=== PATIENT | female | born 1995 | race Caucasian/White ===

== ENCOUNTER 2016-11-19 00:06 | Emergency (ER) | payer MEDICAID ==
[~2016-11-19] VITALS: Ht 160 cm; Wt 53.6 kg
[2016-11-19 00:10] VITALS: Ht 160 cm; Wt 53.6 kg
--- NOTE | 2016-11-19 02:49 | ERD ---
ER Documentation Chief Complaint Date/Time DATE: 11/19/16 TIME: 02:47 Chief Complaint C/O AP X 2 DAYS +N/V 6 WKS PREG. ALSO C/O SKIN DRYNESS HPI 21-year-old female presents here in emergency department for complaints of lower abdominal pain, nausea vomiting started 2 days ago. Patient described the pain is sharp , intermittent pain, 4/10 scale, accompanied with vomiting. Patient denies hematuria or dysuria. Patient denies any vaginal bleeding. Patient denies any other vaginal discharge. Patient denies any flank pain. Patient denies any fever or chills. Patient is approximately 6 weeks , 2 para 1 0. LMP 10/01/2016. Patient also has itching on the bilateral hands, and redness of the skin. Patient denies any rash in other part of the body. ROS All systems reviewed and are negative except as per history of present illness. Medications Home Meds Reported Medications [none] Unknown Strength No Conflict Check 11/19/16 Allergies Allergies: Uncoded Allergies: AMOXCILLIN (Allergy, Intermediate, 11/19/16) PMhx/Soc Medical and Surgical Hx: pt denies Medical Hx, pt denies Surgical Hx History of Surgery: No Anesthesia Reaction: No Hx Neurological Disorder: No Hx Respiratory Disorders: No Hx Cardiac Disorders: No Hx Psychiatric Problems: No Hx Miscellaneous Medical Probl: No Hx Alcohol Use: No Hx Substance Use: No Hx Tobacco Use: No Smoking Status: Never smoker FmHx Family History: No coronary disease, No diabetes, No other Physical Exam Vitals Vital Signs Date Time Temp Pulse Resp B/P Pulse Ox O2 Delivery O2 Flow Rate FiO2 11/19/16 00:10 97.0 76 18 114/65 100 Physical Exam GENERAL: The patient is well developed and appropriate for usual state of health, in no apparent distress. CHEST: Clear to auscultation bilaterally. There are no rales, wheezes or rhonchi. HEART: Regular rate and rhythm. No murmurs, clicks, rubs or gallops. No S3 or S4. ABDOMEN: Soft, nontender and nondistended. Good bowel sounds. No rebound or guarding. No gross peritonitis. No gross organomegaly or masses. No Emanuel sign or McBurney point tenderness. BACK: No midline or flank tenderness. EXTREMITIES: Equal pulses bilaterally. There is no peripheral clubbing, cyanosis or edema. No focal swelling or erythema. Full range of motion. Grossly neurovascularly intact. NEURO: Alert and oriented. Cranial nerves 2-12 intact. Motor strength in all 4 extremities with 5/5 strength. Sensation grossly intact. Normal speech and gait. SKIN: Noted dryness of the skin on bilateral hands, and more on the thumb and the dorsal aspect of the hand. There is no apparent ecchymosis or petechia. The skin is warm and dry. HEMATOLOGIC AND LYMPHATIC: There is no evidence of excessive bruising or lymphedema. No gross cervical, axillary, or inguinal lymphadenopathy. Result Diagram: 11/19/1623211/19/16232 Results 24 hrs Laboratory Tests Test 11/19/16 02:26 11/19/16 02:33 Urine Bacteria MANY Urine Bilirubin NEGATIVE Urine Clarity CLEAR Urine Color YELLOW Urine Glucose NEGATIVE% Urine Hemoglobin NEGATIVE Urine Ketones NEGATIVE Urine Leukocyte Esterase NEGATIVE Urine Microscopic RBC 0-2/HPF Urine Microscopic WBC 0-2/HPF Urine Nitrite POSITIVE Urine Specific [place] >=1.030 Urine Squamous Epithelial Cells FEW Urine Total Protein NEGATIVE Urine Urobilinogen 0.2 E.U./dL Urine pH 5.5 Alanine Aminotransferase (ALT/SGPT) 36IU/L Albumin 4.7g/dl Albumin/Globulin Ratio 1.27 Alkaline Phosphatase 57IU/L Anion Gap 19 Aspartate Amino Transf (AST/SGOT) 26IU/L Basophils # 0.010^3/ul Basophils % 0.3% Beta HCG, Quantitative 63912.0mIU/ml Blood Urea Nitrogen 7mg/dl Calcium Level 9.7mg/dl Carbon Dioxide Level 22mmol/L Chloride Level 102mmol/L Creatinine 0.47mg/dl Direct Bilirubin 0.00mg/dl Eosinophils # 0.010^3/ul Eosinophils % 0.3% Globulin 3.70g/dl Glucose Level 94mg/dl Hematocrit 37.2% Hemoglobin 13.3g/dl Indirect Bilirubin 0.2mg/dl Lymphocytes # 2.010^3/ul Lymphocytes % 19.0% Mean Corpuscular Hemoglobin 31.1pg Mean Corpuscular Hemoglobin Concent 35.8g/dl Mean Corpuscular Volume 86.9fl Mean Platelet Volume 9.8fl Monocytes # 0.410^3/ul Monocytes % 3.5% Neutrophils # 8.010^3/ul Neutrophils % 76.4% Nucleated Red Blood Cells # 0.010^3/ul Nucleated Red Blood Cells % 0.0/100WBC Platelet Count 80027^3/UL Potassium Level 4.0mmol/L Red Blood Count 4.2810^6/ul Red Cell Distribution Width 11.3% Sodium Level 139mmol/L Total Bilirubin 0.2mg/dl Total Protein 8.4g/dl White Blood Count 10.510^3/ul PROCEDURE: US OB. CLINICAL INDICATION: Pelvic pain. TECHNIQUE: Multiple sonographic images of the pelvis were obtained. Transabdominal and transvaginal views of the pelvis are available for review. The images were reviewed on a PACS workstation. COMPARISON: No prior studies are available for comparison. FINDINGS: A single live intrauterine is identified. heart rate is 117 beats per minute. The crown-rump length is 5.4 mm which corresponds to 6 weeks 2 days gestational age by crown-rump length. Estimated date of delivery is . No subchorionic hemorrhage is identified. There is 1.5 x 1.3 cm cyst in the right ovary. Right ovary is otherwise normal appearance of vascular flow. Left ovary was not visualized. There is no adnexal mass or free fluid. IMPRESSION: 1. Single live intrauterine gestation of approximately 6 weeks 2 days by crown rump length. 2. No subchorionic hemorrhage. 3. Small right ovarian cyst. Right ovary otherwise normal in appearance. 4. Left ovary not identified. RPTAT: HMVK .Loyd Boyce MD, MD Date Time Electronically viewed and signed by .Loyd Boyce MD, on 11/19/2016 02:58 .K/ Procedures/[facility] Medical Decision Making: Patient's symptoms of pelvic pain. It is consistent. The right ovarian cyst, also can be from the urinary tract infection, positive nitrites in the urine. Patient's intrauterine stable at this time, 6 weeks, with hCG quantitative is appropriate for . There is low suspicion for abdominal emergencies at this time. Patients abdominal exam is normal at this time. Other radiology exams not indicated at this time. There is low suspicion for appendicitis, cholecystitis, abdominal aortic aneurysms or peritonitis at this time. There is low suspicion for sepsis. Patient appears well and is hemodynamically stable. Patient's rash most likely is consistent with eczema, or some form of dermatitis. Nonspecific at this time. Patient is given prescription for Benadryl to help with itching. Disposition: Home. Condition: Stable Prescription Benadryl, Zofran, Tylenol, Keflex Instructions: Patient is advised to take medications as prescribed. Patient is advised to rest, increase fluid intake and do good perineal diet, see gynecology specialist in 1-2 days for reevaluation of symptoms. Patient is advised that if symptoms are worse, severe abdominal pain, uncontrolled vomiting , high fever, severe flank pain, worst signs and symptoms, to return to the emergency department immediately. Otherwise, patient can follow up with primary care doctor in 1-2 days Departure Diagnosis: Primary Impression: Abdominal pain Abdominal location: lower abdomen, unspecified Qualified Code: R10.30 - Lower abdominal pain Additional Impressions: UTI (urinary tract infection) Urinary tract infection type: acute cystitis Hematuria presence: without hematuria Qualified Code: N30.00 - Acute cystitis without hematuria Right ovarian cyst Intrauterine Condition: Stable Patient Instructions: Abdominal Pain, Early , Ovarian Cyst, Understanding Urinary Tract Infections (UTIs) Additional Instructions: Patient is advised to take medications as prescribed. Patient is advised to rest , increase fluid intake and do good perineal diet, see gynecology specialist in 1-2 days for reevaluation of symptoms. Patient is advised that if symptoms are worse, severe abdominal pain, uncontrolled vomiting, high fever, severe flank pain, worst signs and symptoms, to return to the emergency department immediately. Otherwise, patient can follow up with primary care doctor in 1-2 days JARED WEBBER NP Nov 19, 2016 02:49
--- NOTE | 2016-11-19 02:59 | RADRPT ---
PROCEDURE: US OB. CLINICAL INDICATION: Pelvic pain. TECHNIQUE: Multiple sonographic images of the pelvis were obtained. Transabdominal and transvagin al views of the pelvis are available for review. The images were reviewed on a PACS workstation. COMPARISON: No prior studies are available for comparison. FINDINGS: A single live intrauterine is identified. heart rate is 117 beats per minute. The cr own-rump length is 5.4 mm which corresponds to 6 weeks 2 days gestational age by crown-rump length. Estimated date of delivery is 07/12/2017. No subchorionic hemorrhage is identified. There is 1.5 x 1.3 cm cyst in the right ovary. Right ovary is otherwise normal appearance of vascular flow. Left o vary was not visualized. There is no adnexal mass or free fluid. IMPRESSION: 1. Single live intrauterine gestation of approximately 6 weeks 2 days by crown rump length. 2. No subchorionic hemorrhage. 3. Small right ovarian cyst. Right ovary otherwise normal in appearance. 4. Left ovary not identified. RPTAT: HMVK .Loyd Boyce MD, MD Date Time Electronically viewed and signed by .Loyd Boyce MD, MD on 11/19/2016 02:58 .K/
[2016-11-19 03:05] LABS: ADD SCAN DIFF NO
[2016-11-19 03:17] LABS: ALBUMIN 4.7 g/dl (3.3-4.9)
[2016-11-19 03:20] LABS: ALBUMIN/GLOBULIN RATIO 1.27; BILIRUBIN,INDIRECT 0.2 mg/dl (0-1.1); BILIRUBIN,TOTAL 0.2 mg/dl (0.2-1.3); CREATININE 0.47 mg/dl (0.44-1.00); TOTAL PROTEIN 8.4 g/dl (6.1-8.1)
[2016-11-19 03:21] LABS: CALCIUM 9.7 mg/dl (8.4-10.2)
[2016-11-19 03:21] LABS: ADD UMIC YES; URINE BILIRUBIN (Dip) NEGATIVE (NEGATIVE); URINE BLOOD (Dip) NEGATIVE (NEGATIVE); URINE COLOR YELLOW (YELLOW); URINE GLUCOSE (Dip) NEGATIVE (NEGATIVE); URINE KETONES (Dip) NEGATIVE (NEGATIVE); URINE LEUKOCYTE ESTERASE (Dip) NEGATIVE (NEGATIVE); URINE NITRITE (Dip) POSITIVE (NEGATIVE); URINE TOTAL PROTEIN (Dip) NEGATIVE (NEGATIVE); URINE UROBILINOGEN (Dip) 0.2 E.U./dL (0.1-1.0)
[2016-11-19 03:25] LABS: BASOPHILS % 0.3 % (0.0-2.0); EOSINOPHILS % 0.3 % (0.0-7.0); HEMATOCRIT 37.2 % (37.0-47.0); HEMOGLOBIN 13.3 g/dl (12.0-16.0); MEAN CORPUSCULAR HEMOGLOBIN 31.1 pg (29.0-33.0); MEAN CORPUSCULAR HGB CONC 35.8 g/dl (32.0-37.0); MEAN CORPUSCULAR VOLUME 86.9 fl (82.0-101.0); MEAN PLATELET VOLUME 9.8 fl (7.4-10.4); MONOCYTE # 0.4 10^3/ul (0.3-0.9); MONOCYTES % 3.5 % (0.0-11.0); NEUTROPHILS % 76.4 % (39.0-77.0); PLATELET COUNT 352 10^3/UL (140-415); RED BLOOD COUNT 4.28 10^6/ul (4.20-5.40); RED CELL DISTRIBUTION WIDTH 11.3 % (11.5-14.5); WHITE BLOOD COUNT 10.5 10^3/ul (4.8-10.8)
[2016-11-19 03:39] LABS: BACTERIA,URINE MANY; SQUAMOUS EPITHELIAL CELL,UR FEW; URINE RBCS 0-2 /HPF (0)
[2016-11-19] MEDS ORDERED: ONDA4TAB14 PO (04:55)
[2016-11-19] MEDS ORDERED: CEPH-443 PO (04:55)
[2016-11-19] MEDS ORDERED: ACET500C5 PO (04:55)
[2016-11-19 05:28] VITALS: BP 112/67; PULSE 78; RESP 16; TEMP 98.3
== END 2016-11-19 05:31 | disposition home or self-care (01) ==
LOC: FTE 00:06
DX: O26.891 Other specified pregnancy related conditions, first trimester (principal); R10.30 Lower abdominal pain, unspecified; O23.11 Infections of bladder in pregnancy, first trimester; O99.89 Other specified diseases and conditions complicating pregnancy, childbirth and the puerperium; N83.201 Unspecified ovarian cyst, right side; O21.9 Vomiting of pregnancy, unspecified; R10.2 Pelvic and perineal pain; Z3A.01 Less than 8 weeks gestation of pregnancy
CPT/HCPCS: 36415; 76801; 80053; 81001; 84702; 85025; 86900; 86901; Z7502; 81003

== ENCOUNTER 2016-12-16 19:49 | Emergency (ER) | payer MEDICAID ==
[~2016-12-16] VITALS: Ht 152.4 cm; Wt 52.0 kg
[~2016-12-16 19:49] MED LIST: ACET500C5 PO; CEPH-443 PO; ONDA4TAB14 PO
[2016-12-16 19:59] VITALS: Ht 152.4 cm; Wt 52.0 kg
[2016-12-16] MEDS ORDERED: ONDANSETRON 4 MG INJ IV STA (20:32)
[2016-12-16] MEDS ORDERED: SOD CHLORIDE 0.9% 1,000 ML IV STA (20:32)
[2016-12-16] MEDS ORDERED: ACETAMINOPHEN 325 MG TAB PO STA (20:32)
--- NOTE | 2016-12-16 21:24 | RADRPT ---
PROCEDURE: US Obstetrical 1st Trimester CLINICAL INDICATION: Vaginal bleeding TECHNIQUE: Multiple real-time images were acquired of the patient's maternal abdomen utilizing a curved array transducer. COMPARISON: 11/19/2016 FINDINGS: There is a well implanted gestational sac within the fundus of the uterus with a mean sac diameter o f 4.9 cm which corresponds to a gestational sac age of 11 weeks 0 days. A small yolk sac is identifi ed. There is a single pole with a crown-rump length of 4.25 cm which corresponds to a gestati onal age of 11 weeks 1 day. There is positive cardiac activity being a t 171 beats per minute . The right ovary measures 2.7 x 2.4 x 1.2 cm. The left ovary measures 2.6 x 1.9 x 1.6 cm. Vascular flow is demonstrated in each ovary on Doppler. No adnexal mass or free fluid is identified IMPRESSION: 1. Single live intrauterine fetus which by ultrasound corresponds to a gestational age of 11 weeks 1 day plus or minus 1 week. This is compatible with adequate growth since the previous scan. The lin mated date of delivery based on today's sonogram is 07/06/2017. 2. No subchorionic hemorrhage is evident. 3. No adnexal mass or free fluid is identified. Physician Manisha Date Time Electronically viewed and signed by Physician Manisha on 12/16/2016 21:24 RH/
[2016-12-16 21:28] LABS: ADD SCAN DIFF NO
[2016-12-16 21:35] LABS: BASOPHILS % 0.2 % (0.0-2.0); EOSINOPHILS # 0.1 10^3/ul (0.0-0.5); EOSINOPHILS % 0.7 % (0.0-7.0); HEMATOCRIT 35.1 % (37.0-47.0); HEMOGLOBIN 12.4 g/dl (12.0-16.0); LYMPHOCYTES # 2.2 10^3/ul (0.8-2.9); LYMPHOCYTES % 20.4 % (15.0-51.0); MEAN CORPUSCULAR HEMOGLOBIN 31.2 pg (29.0-33.0); MEAN CORPUSCULAR HGB CONC 35.3 g/dl (32.0-37.0); MEAN CORPUSCULAR VOLUME 88.2 fl (82.0-101.0); MEAN PLATELET VOLUME 9.4 fl (7.4-10.4); MONOCYTE # 0.6 10^3/ul (0.3-0.9); MONOCYTES % 5.9 % (0.0-11.0); NEUTROPHIL # 7.7 10^3/ul (1.6-7.5); NEUTROPHILS % 72.3 % (39.0-77.0); PLATELET COUNT 314 10^3/UL (140-415); RED BLOOD COUNT 3.98 10^6/ul (4.20-5.40); RED CELL DISTRIBUTION WIDTH 11.5 % (11.5-14.5); WHITE BLOOD COUNT 10.6 10^3/ul (4.8-10.8)
[2016-12-16 21:39] LABS: POTASSIUM 3.7 mmol/L (3.5-5.1)
[2016-12-16 21:42] LABS: CREATININE 0.43 mg/dl (0.44-1.00)
[2016-12-16 21:43] LABS: CALCIUM 9.4 mg/dl (8.4-10.2)
[2016-12-16 21:49] LABS: ADD UMIC NO; URINE BILIRUBIN (Dip) NEGATIVE (NEGATIVE); URINE BLOOD (Dip) NEGATIVE (NEGATIVE); URINE COLOR LT. YELLOW (YELLOW); URINE GLUCOSE (Dip) NEGATIVE (NEGATIVE); URINE KETONES (Dip) NEGATIVE (NEGATIVE); URINE LEUKOCYTE ESTERASE (Dip) NEGATIVE (NEGATIVE); URINE NITRITE (Dip) NEGATIVE (NEGATIVE); URINE TOTAL PROTEIN (Dip) NEGATIVE (NEGATIVE); URINE UROBILINOGEN (Dip) 1.0 E.U./dL (0.1-1.0)
--- NOTE | 2016-12-16 22:43 | ERD ---
ER Documentation Chief Complaint Date/Time DATE: 12/16/16 TIME: 22:32 Chief Complaint 10 wks , pelvic pain HPI Patient is a 21-year-old female who is with a last normal menstrual period of 10/01/16 who presents to the ED with headache, vomiting and nausea 2 days. She also complains of mild left pelvic pain. She denies vaginal bleeding or discharge. Denies abdominal pain, diarrhea or constipation. She has not taken any medication for her symptoms. She denies dizziness, neck pain or stiffness. Denies fever or chills. Denies cough, shortness of breath or difficulty breathing. Denies leg pain or swelling. Denies sick contacts. She does have an OB doctor at [facility], unsure of name of provider. No other complaints. ROS All systems reviewed and are negative except as per history of present illness. Medications Home Meds Active Scripts Acetaminophen* (Tylophen*) 500 Mg Capsule, 1 CAP PO Q6H Y for PAIN AND OR ELEVATED TEMP, #20 CAP Prov:HOLLI VELAZQUEZ PA-C 12/16/16 Ondansetron (Ondansetron Odt) 4 Mg Tab.rapdis, 4 MG PO Q8 Y for NAUSEA AND/OR VOMITING, #30 TAB Prov:JARED WEBBER [employer] 11/19/16 Cephalexin* (Keflex*) 500 Mg Capsule, 500 MG PO QID for 7 Days, CAP Prov:JARED WEBBER [employer] 11/19/16 Acetaminophen* (Tylophen*) 500 Mg Capsule, 1 CAP PO Q6H Y for PAIN AND OR ELEVATED TEMP, #20 CAP Prov:JARED WEBBER [employer] 11/19/16 Reported Medications [none] Unknown Strength No Conflict Check 11/19/16 Allergies Allergies: Uncoded Allergies: AMOXCILLIN (Allergy, Intermediate, 11/19/16) PMhx/Soc Medical and Surgical Hx: pt denies Medical Hx History of Surgery: Yes (C SECTION 2012) Anesthesia Reaction: No Hx Neurological Disorder: No Hx Respiratory Disorders: No Hx Cardiac Disorders: No Hx Psychiatric Problems: No Hx Miscellaneous Medical Probl: No Hx Alcohol Use: No Hx Substance Use: No Hx Tobacco Use: No Smoking Status: Never smoker FmHx Family History: No coronary disease, No diabetes, No other Physical Exam Vitals Vital Signs Date Time Temp Pulse Resp B/P Pulse Ox O2 Delivery O2 Flow Rate FiO2 12/16/16 22:56 98.2 69 16 115/62 100 Room Air 12/16/16 19:59 98.5 97 20 119/64 100 Physical Exam GENERAL: Well-developed, well-nourished female. Appears in no acute distress. HEAD: Normocephalic, atraumatic. EYES: Pupils are equally reactive bilaterally. EOMs grossly intact. No conjunctival erythema. ENT: Moist mucous membranes. No uvula deviation. No kissing tonsils. No exudates. NECK: Supple. No lymphadenopathy or thyromegaly. No meningismus. negative kernig. negative brudinski. LUNG: Clear to auscultation bilaterally. No rhonchi, wheezing, rales or coarse breath sounds. HEART: Regular rate and rhythm. No murmurs, rubs or gallops. ABDOMEN: No scars, ecchymosis or rashes noted. Soft, nontender, and nondistended. Positive bowel sounds in all four quadrants. No rebound tenderness , no guarding. (-) McBurneys point tenderness. No CVA tenderness. BACK: No midline tenderness. Extremities: Equal pulses bilaterally. No peripheral clubbing, cyanosis or edema. No unilateral leg swelling. NEUROLOGIC: Alert and oriented. Moving all four extremities. 5/5 strength in all extremities. Normal speech. Steady gait. Cranial nerves II through XII intact SKIN: Normal color. Warm and dry. No rashes or lesions. Capillary refill < 2 seconds Result Diagram: 12/16/16210912/16/162109 Results 24 hrs Laboratory Tests Test 12/16/16 20:00 12/16/16 21:10 Urine Color LT. YELLOW Urine Clarity SLIGHTLY CLOUDY Urine pH 7.0 Urine Specific [place] 1.020 Urine Ketones NEGATIVE Urine Nitrite NEGATIVE Urine Bilirubin NEGATIVE Urine Urobilinogen 1.0 E.U./dL Urine Leukocyte Esterase NEGATIVE Urine Hemoglobin NEGATIVE Urine Glucose NEGATIVE% Urine Total Protein NEGATIVE White Blood Count 10.610^3/ul Red Blood Count 3.9810^6/ul Hemoglobin 12.4g/dl Hematocrit 35.1% Mean Corpuscular Volume 88.2fl Mean Corpuscular Hemoglobin 31.2pg Mean Corpuscular Hemoglobin Concent 35.3g/dl Red Cell Distribution Width 11.5% Platelet Count 46735^3/UL Mean Platelet Volume 9.4fl Neutrophils % 72.3% Lymphocytes % 20.4% Monocytes % 5.9% Eosinophils % 0.7% Basophils % 0.2% Nucleated Red Blood Cells % 0.0/100WBC Neutrophils # 7.710^3/ul Lymphocytes # 2.210^3/ul Monocytes # 0.610^3/ul Eosinophils # 0.110^3/ul Basophils # 0.010^3/ul Nucleated Red Blood Cells # 0.010^3/ul Sodium Level 138mmol/L Potassium Level 3.7mmol/L Chloride Level 104mmol/L Carbon Dioxide Level 24mmol/L Anion Gap 14 Blood Urea Nitrogen 6mg/dl Creatinine 0.43mg/dl Glucose Level 97mg/dl Calcium Level 9.4mg/dl Beta HCG, Quantitative 101752.0mIU/ml Current Medications Medications (Trade) Dose Ordered Sig/Fatmata Route PRN Reason Start Time Stop Time Status Last Admin Dose Admin Sodium Chloride (NS) 1,000 ml @ 1,000 mls/hr Q1H STAT IV 12/16/16 20:32 12/16/16 21:31 DC 12/16/16 20:59 Acetaminophen (Tylenol Tab) 650 mg ONCE STAT PO 12/16/16 20:32 12/16/16 20:34 DC 12/16/16 21:01 Ondansetron HCl (Zofran Inj) 4 mg ONCE STAT IV 12/16/16 20:32 12/16/16 20:34 DC 12/16/16 21:01 Procedures/MDM ER COURSE: I kept the patient and/or family informed of laboratory and diagnostic imaging results throughout the emergency room course. EKG, MONITORS, & DIAGNOSTIC IMAGING: [place] [id number] Radiology Main Line: [phone] DIAGNOSTIC IMAGING REPORT Patient: JASON DIAS : 1995 Age: 21 Sex: F MR #: [id number] DOS: 12/16/16 0000 Ordering MD: HOLLI VELAZQUEZ PA-C Location: [facility] Room/Bed: PROCEDURE: US Obstetrical 1st Trimester CLINICAL INDICATION: Vaginal bleeding TECHNIQUE: Multiple real-time images were acquired of the patient's maternal abdomen utilizing a curved array transducer. COMPARISON: 11/19/2016 FINDINGS: There is a well implanted gestational sac within the fundus of the uterus with a mean sac diameter of 4.9 cm which corresponds to a gestational sac age of 11 weeks 0 days. A small yolk sac is identified. There is a single pole with a crown-rump length of 4.25 cm which corresponds to a gestational age of 11 weeks 1 day. There is positive cardiac activity being a t 171 beats per minute. The right ovary measures 2.7 x 2.4 x 1.2 cm. The left ovary measures 2.6 x 1.9 x 1.6 cm. Vascular flow is demonstrated in each ovary on Doppler. No adnexal mass or free fluid is identified IMPRESSION: 1. Single live intrauterine fetus which by ultrasound corresponds to a gestational age of 11 weeks 1 day plus or minus 1 week. This is compatible with adequate growth since the previous scan. The estimated date of delivery based on today's sonogram is 07/06/2017. 2. No subchorionic hemorrhage is evident. 3. No adnexal mass or free fluid is identified. Physician Manisha Date Time Electronically viewed and signed by Physician Manisha on 12/16/2016 21:24 RH/ CC: HOLLI VELAZQUEZ PA-C MEDICATIONS: Tylenol, Zofran, fluids. Tolerated well and stated improvement in symptoms. LAB INTERPRETATION: CBC showed no evidence of systemic infection or severe anemia. BMP showed no evidence of electrolyte abnormalities, severe acidosis, alkalosis, renal failure , or liver disease. UA showed no evidence of leukocytes, nitrites or hematuria. Urine test was negative. Beta hC rH: o+ MEDICAL DECISION MAKING: This is a 21-year-old female who is who presents with headache, nausea. Vital signs were reviewed. Patient is afebrile. Patient is not hypoxic. I reexamined patient after demonstration of medication, patient stated improvement in symptoms. Low suspicion for ovarian torsion, PID, tuboovarian abscess, ectopic , bowel obstruction, pyelonephritis, UTI, appendicitis , cervicitis, septic , molar , HELLP syndrome, preeclampsia, eclampsia, placenta previa, placenta abruptia. Low suspicion for intracranial hemorrhage, meningitis, intracranial mass, concussion, temporal arteritis, stroke, elevated intracranial pressure, seizure. DISCHARGE: At this time, patient is stable for discharge and outpatient management with no new complaints during the ER course. Patient was sent home with Tylenol. Patient will be discharged home with instructions to recheck for new or worsening symptoms such as fever, nausea, weakness, LOC and to follow up with primary care in the next 1-2 days. Patient was advised to return to the ER for any new or worsening symptoms. Plan was discussed and patient and/or family understands and agrees. Home instructions were given. Departure Diagnosis: Primary Impression: Nausea & vomiting Vomiting type: unspecified Vomiting Intractability: unspecified Qualified Code: R11.2 - Nausea and vomiting, intractability of vomiting not specified, unspecified vomiting type Condition: Stable HOLLI VELAZQUEZ PA-C Dec 16, 2016 22:42
[2016-12-16] MEDS ORDERED: ACET500C5 PO (22:47)
[2016-12-16 22:56] VITALS: BP 115/62; PULSE 69; RESP 16; TEMP 98.2
== END 2016-12-16 22:57 | disposition home or self-care (01) ==
LOC: FTE 19:49
DX: O21.9 Vomiting of pregnancy, unspecified (principal); R10.2 Pelvic and perineal pain; Z3A.11 11 weeks gestation of pregnancy
CPT/HCPCS: 36415; 76801; 80048; 81003; 84702; 85025; 86900; 86901; 96374; J2405; J7030; Z7502; Z7610

== ENCOUNTER 2016-12-28 02:25 | Emergency (ER) | payer MEDICAID ==
[~2016-12-28] VITALS: Ht 149.9 cm; Wt 52.0 kg
[2016-12-28 02:28] VITALS: Ht 149.9 cm; Wt 52.0 kg
[2016-12-28] MEDS ORDERED: ACETAMINOPHEN 500 MG TAB PO STA (04:16)
[2016-12-28] MEDS ORDERED: ONDANSETRON (ODT) 4 MG TAB ODT STA (04:16)
--- NOTE | 2016-12-28 04:16 | ERD ---
ER Documentation Chief Complaint Date/Time DATE: 12/28/16 TIME: 04:11 Chief Complaint Anxiety, no sleep, Nausea, SHI. 12 Wks . Feeling hopeless HPI 20-year-old female presents to the emergency room for multiple complaints including right-sided headache, abdominal pain, unable to sleep well for the past 3 day. Right-sided headache was described as achy nonradiating. She also complains of sensitivity to light. Stated that her abdominal pain was described as achy and nonradiating, and it has been on and off. She also complains of nausea without vomiting. She told the triage nurse is feeling hopeless. Patient is 12 weeks . She denies auditory/visual hallucinations/delusions. Not suicidal. Not homicidal. Has the capacity to decide for herself. Stated that she lives with her significant other. Stated that she has good support system at home. Denies head trauma, that this is the worst headache of her life, loss of consciousness, dizziness, blurry vision, changes in vision, ear pain, throat pain, difficulty swallowing, neck pain, shoulder pain, chest pain, cough, hemoptysis, back pain, loss of appetite, vomiting, hematochezia, diarrhea, constipation, urinary symptoms, bladder and bowel incontinences, extremity weakness, extremity tenderness, numbness or tingling sensation, difficulty walking, recent travel, recent exposure to illness, recent antibiotic use in the last 3 months, fever, chills. Allergy: No known drug allergies. PMH: Depression. Family medical history: Denies. AO LMP: 10/01/2016. RUBA: Unknown. Medications: Surgery: 1. Primary Social History: Not working at this time. Denies smoking, use of alcohol, use of illegal drugs. ROS All systems reviewed and are negative except as per history of present illness. Medications Home Meds Active Scripts Acetaminophen* (Tylophen*) 500 Mg Capsule, 1 CAP PO Q6H Y for PAIN AND OR ELEVATED TEMP, #20 CAP Prov:HOLLI VELAZQUEZ PA-C 12/16/16 Ondansetron (Ondansetron Odt) 4 Mg Tab.rapdis, 4 MG PO Q8 Y for NAUSEA AND/OR VOMITING, #30 TAB Prov:JARED WEBBER NP 11/19/16 Cephalexin* (Keflex*) 500 Mg Capsule, 500 MG PO QID for 7 Days, CAP Prov:JARED WEBBERDalila CIRCULAR DISTRIBUTOR 11/19/16 Acetaminophen* (Tylophen*) 500 Mg Capsule, 1 CAP PO Q6H Y for PAIN AND OR ELEVATED TEMP, #20 CAP Prov:JARED WEBBER. [employer] 11/19/16 Reported Medications [none] Unknown Strength No Conflict Check 11/19/16 Allergies Allergies: Uncoded Allergies: AMOXCILLIN (Allergy, Intermediate, 11/19/16) PMhx/Soc History of Surgery: Yes (C SECTION 2012) Anesthesia Reaction: No Hx Neurological Disorder: No Hx Respiratory Disorders: No Hx Cardiac Disorders: No Hx Psychiatric Problems: No Hx Miscellaneous Medical Probl: No Hx Alcohol Use: No Hx Substance Use: No Hx Tobacco Use: No Physical Exam Vitals Vital Signs Date Time Temp Pulse Resp B/P Pulse Ox O2 Delivery O2 Flow Rate FiO2 12/28/16 02:28 99.1 86 20 127/74 99 Physical Exam CONSTITUTIONAL: Well-appearing; well-nourished; in no apparent distress. HEAD: Normocephalic; atraumatic. EYES: Conjunctiva clear, sclera non-icteric, EOM intact. PERRL Ears: Hearing intact. EACs clear, TMs non-bulging, non-inflamed, translucent & mobile, ossicles normal appearance, No obstructions, no erythema, no discharges Nose: No obstructions. No polyps. No external lesions. Mucosa non-inflamed. No external lesions, septum and turbinates normal. No rhinorrhea. No discharges. Frontal sinus is non-tender to palpation. Maxillary sinus is non-tender to palpation. MOUTH: Moist mucous membranes, no lesion, no obstructions, no vesicles, no thrush, patent airway Throat: Uvula in midline. Right tonsil is +1 with no erythema, no exudate. Left tonsil is +1 with no erythema, no exudate. Tolerating secretions well. Good gag reflex. Patent airway. Neck: Supple, without lesions, bruits, or adenopathy. No mass. Thyroid non- enlarged and non-tender to palpation. CHEST: Symmetrical chest. Respirations even and not labored. No retractions noted. CARDIOVASCULAR: Normal S1, S2. RRR. No murmurs, gallops. RESPIRATORY: Normal chest excursion with respiration; breath sounds clear and equal bilaterally; no wheezes, rhonchi, or rales. Breathing even and unlabored. Speaking in clear, full, and complete sentences w/ ease. ABDOMEN: Normal bowel sounds normal. Soft, round, non-distended, non-guarding, no tenderness, no rebound, no organomegaly, no masses, no pulsating abdominal mass. No hernia. No peritoneal signs. : No CVA tenderness. BACK: Symmetrical shoulder. Spine is midline without deformity, tenderness. No evidence of trauma or deformity. PELVIS: Stable pelvis. No evidence of trauma or deformity. MUSCULOSKELETAL: Normal gait and station. No misalignment, asymmetry, crepitation, defects, tenderness, masses, effusions, decreased range of motion, instability, atrophy or abnormal strength or tone in the head, neck, spine, ribs , pelvis or extremities. No calf tenderness. NEUROVASCULAR: Distal pulses are present. Pedal pulse are present, equal, and normal. Capillary refills are < 2 seconds. NEUROLOGIC: Alert and oriented x4. Speaks full and clear sentences. Cranial Nerves II-XII normal. Sensation to pain, touch, and proprioception normal. Grossly unremarkable. No neurologic deficits. Romberg test is negative. PSYCHOLOGICAL: The patients mood and manner are appropriate. No hallucinations , delusions. Not SI. Not HI. Has the capacity to decide for self SKIN: Normal for age and ethnicity; warm; dry; good turgor; no apparent lesions or exudates. No rashes, hives, discoloration. Intact. Result Diagram: 12/28/16 0435 12/28/16 0435 Results 24 hrs Laboratory Tests Test 12/28/16 04:35 White Blood Count 10.110^3/ul Red Blood Count 4.1710^6/ul Hemoglobin 13.2g/dl Hematocrit 36.7% Mean Corpuscular Volume 88.0fl Mean Corpuscular Hemoglobin 31.7pg Mean Corpuscular Hemoglobin Concent 36.0g/dl Red Cell Distribution Width 11.9% Platelet Count 04188^3/UL Mean Platelet Volume 9.2fl Neutrophils % 67.8% Lymphocytes % 26.1% Monocytes % 4.5% Eosinophils % 0.8% Basophils % 0.3% Nucleated Red Blood Cells % 0.0/100WBC Neutrophils # 6.910^3/ul Lymphocytes # 2.610^3/ul Monocytes # 0.510^3/ul Eosinophils # 0.110^3/ul Basophils # 0.010^3/ul Nucleated Red Blood Cells # 0.010^3/ul Urine Color LT. YELLOW Urine Clarity CLEAR Urine pH 6.5 Urine Specific [place] 1.015 Urine Ketones NEGATIVE Urine Nitrite NEGATIVE Urine Bilirubin NEGATIVE Urine Urobilinogen 0.2 E.U./dL Urine Leukocyte Esterase NEGATIVE Urine Hemoglobin NEGATIVE Urine Glucose NEGATIVE% Urine Total Protein NEGATIVE Urine Test POSITIVE Sodium Level 136mmol/L Potassium Level 3.9mmol/L Chloride Level 104mmol/L Carbon Dioxide Level 23mmol/L Anion Gap 13 Blood Urea Nitrogen 5mg/dl Creatinine 0.43mg/dl Glucose Level 91mg/dl Calcium Level 9.2mg/dl Total Bilirubin 0.2mg/dl Direct Bilirubin 0.00mg/dl Indirect Bilirubin 0.2mg/dl Aspartate Amino Transf (AST/SGOT) 26IU/L Alanine Aminotransferase (ALT/SGPT) 24IU/L Alkaline Phosphatase 68IU/L Total Protein 8.1g/dl Albumin 4.5g/dl Globulin 3.60g/dl Albumin/Globulin Ratio 1.25 Amylase Level 123U/L Lipase 250U/L Beta HCG, Quantitative 465459.0mIU/ml Urine Opiates Screen Negative Urine Barbiturates Negative Urine Amphetamines Screen Negative Urine Benzodiazepines Screen Negative Urine Cocaine Screen Negative Urine Cannabinoids Negative Current Medications Medications (Trade) Dose Ordered Sig/Fatmata Route PRN Reason Start Time Stop Time Status Last Admin Dose Admin Acetaminophen (Tylenol Tab) 500 mg ONCE STAT PO 12/28/16 04:16 12/28/16 04:22 DC 12/28/16 04:33 Ondansetron HCl (Zofran Odt) 4 mg ONCE STAT ODT 12/28/16 04:16 12/28/16 04:22 DC 12/28/16 04:33 Procedures/MDM Examination: Please see physical examination. Disease process, medical treatment was explained to the patient and family member. They verbalized understanding and agreed with the diagnostic tests, medical treatment, and follow-up care. Radiology: OB ultrasound Impression: Single viable intrauterine gestation of approximately 12 weeks 2 days. Estimated date of delivery is July 10, 2017. Right ovarian cyst. The left ovary was not visualized. Blood works: Reviewed. Beta hCG qualitative:[id number]. POC urine : Positive. Urinalysis: Reviewed. Urine drug screen: Reviewed. Type and Rh: O Negative. Treatment: Zofran. Tylenol. Re-evaluation: Patient is alert oriented 4. Speaks full and clear sentences. Denies headache, dizziness, blurry vision, light sensitivity, pain on eye movement, neck pain, shoulder pain, chest pain, back pain, abdominal pain, pelvic pain, vaginal bleeding. Unremarkable abdominal reexamination. No nausea and vomiting. No active bleeding. No episode of emesis here to emergency department. No neurological deficits. Denies auditory/visual hallucinations/delusions. Not suicidal. Not homicidal. Has the capacity to decide for herself. Stated that she has good support system at home. Consultation: Differential diagnosis: Ectopic versus versus anxiety versus depression Medical decision m[age]-year-old female presents to the emergency room for multiple complaints including right-sided headache, abdominal pain, unable to sleep well for the past 3 day. Right-sided headache was described as achy nonradiating. She also complains of sensitivity to light. Stated that her abdominal pain was described as achy and nonradiating, and it has been on and off. She also complains of nausea without vomiting. She told the triage nurse is feeling hopeless. Patient is 12 weeks . She denies auditory/visual hallucinations/delusions. Not suicidal. Not homicidal. Has the capacity to decide for herself. Stated that she lives with her significant other. Stated that she has good support system at home. Patient's complaint, patient's history about her complaint, my physical findings, diagnostic test results, my re-evaluation are consistent my final diagnosis of anxiety, Case was discussed with supervising emergency room physician, Dr. Loyd Mai agreed with my diagnostic studies, and medical decision making as well as plan of care. Case was also discussed with supervising emergency room physician, Dr. Ezequiel Banks who agreed with my medical decision making and plan of care. She also stated that patient is safe to go home and to follow-up with her primary care physician and OB specialist. Medications prescribed are the following: Tylenol. Zofran. Benadryl. Patient and family member are made aware of the side effects and adverse reactions of the medications prescribed. Instructed on when to seek emergent and medical attention in case allergic/anaphylactic reactions or severe side effects and or adverse reactions to medications. Patient and family member verbalized understanding. Patient instructed Instructed to follow-up with his PCP in 24-48 hours. Follow-up with OB specialist in the next 24-48 hours. Instructed to Call 911 for chest pain, shortness of breath. Advised to come back here in ED as soon as possible for severity of symptoms which includes but not limited to: any new symptoms; shortness of breath/difficulty of breathing; cardiovascular changes; severe gastrointestinal symptoms; signs and symptoms of bleeding and or infection; signs of compartment syndrome/neurovascular changes; neurological changes/deficits. Patient and family member verbalized understanding. Upon discharge, patient is alert and oriented x 4, speaks full and clear sentences, denies pain, has no neurological deficits, has no neurovascular deficits, difficulty of breathing. Breathing even and unlabored. Lung sounds are clear to auscultation. Not in distress. Appears comfortable. Ambulatory with steady gait. Denies auditory/visual hallucinations/delusions. Not suicidal. Not homicidal. Has the capacity to decide for herself. Stated that she has good support system at home.Appears satisfied with care provided here in ED. Departure Diagnosis: Primary Impression: Anxiety Additional Impression: Abdominal Condition: Stable Additional Instructions: Patient instructed Instructed to follow-up with his PCP in 24-48 hours. Follow-up with OB specialist in the next 24-48 hours. Instructed to Call 911 for chest pain, shortness of breath. Advised to come back here in ED as soon as possible for severity of symptoms which includes but not limited to: any new symptoms; shortness of breath/difficulty of breathing; cardiovascular changes; severe gastrointestinal symptoms; signs and symptoms of bleeding and or infection; signs of compartment syndrome/neurovascular changes; neurological changes/deficits. Patient and family member verbalized understanding. JAYCEE HOLLEY Dec 28, 2016 04:16
[2016-12-28 04:49] LABS: ADD SCAN DIFF NO
[2016-12-28 04:52] LABS: BASOPHILS % 0.3 % (0.0-2.0); EOSINOPHILS # 0.1 10^3/ul (0.0-0.5); EOSINOPHILS % 0.8 % (0.0-7.0); HEMATOCRIT 36.7 % (37.0-47.0); HEMOGLOBIN 13.2 g/dl (12.0-16.0); LYMPHOCYTES # 2.6 10^3/ul (0.8-2.9); LYMPHOCYTES % 26.1 % (15.0-51.0); MEAN CORPUSCULAR HEMOGLOBIN 31.7 pg (29.0-33.0); MEAN PLATELET VOLUME 9.2 fl (7.4-10.4); MONOCYTE # 0.5 10^3/ul (0.3-0.9); MONOCYTES % 4.5 % (0.0-11.0); NEUTROPHIL # 6.9 10^3/ul (1.6-7.5); NEUTROPHILS % 67.8 % (39.0-77.0); PLATELET COUNT 344 10^3/UL (140-415); RED BLOOD COUNT 4.17 10^6/ul (4.20-5.40); RED CELL DISTRIBUTION WIDTH 11.9 % (11.5-14.5); WHITE BLOOD COUNT 10.1 10^3/ul (4.8-10.8)
[2016-12-28 04:57] LABS: ADD UMIC NO; URINE BILIRUBIN (Dip) NEGATIVE (NEGATIVE); URINE BLOOD (Dip) NEGATIVE (NEGATIVE); URINE COLOR LT. YELLOW (YELLOW); URINE GLUCOSE (Dip) NEGATIVE (NEGATIVE); URINE KETONES (Dip) NEGATIVE (NEGATIVE); URINE LEUKOCYTE ESTERASE (Dip) NEGATIVE (NEGATIVE); URINE NITRITE (Dip) NEGATIVE (NEGATIVE); URINE TOTAL PROTEIN (Dip) NEGATIVE (NEGATIVE); URINE UROBILINOGEN (Dip) 0.2 E.U./dL (0.1-1.0)
[2016-12-28 05:07] LABS: ALBUMIN 4.5 g/dl (3.3-4.9); ALBUMIN/GLOBULIN RATIO 1.25; BILIRUBIN,INDIRECT 0.2 mg/dl (0-1.1); BILIRUBIN,TOTAL 0.2 mg/dl (0.2-1.3); CALCIUM 9.2 mg/dl (8.4-10.2); CREATININE 0.43 mg/dl (0.44-1.00); POTASSIUM 3.9 mmol/L (3.5-5.1); TOTAL PROTEIN 8.1 g/dl (6.1-8.1)
[2016-12-28 05:21] LABS: BARBITURATES Negative (NEGATIVE); BENZODIAZEPINES Negative (NEGATIVE); CANNABINOIDS Negative (NEGATIVE); COCAINE Negative (NEGATIVE); OPIATES Negative (NEGATIVE)
--- NOTE | 2016-12-28 05:42 | RADRPT ---
PROCEDURE: ULTRASOUND OBSTETRICAL CLINICAL INDICATION: 21-year-old female with abdominal pain. TECHNIQUE: Multiple sonographic images of the pelvis were obtained. The images were reviewed on a PACS workstation. COMPARISON: None. FINDINGS: There is a single intrauterine gestation. There is a pole present with a crown-rump length of 5.85 cm. This yields an estimated gestational age of 12 weeks and 2 days. The estimated date of deli very is July 10, 2017. Cardiac activity is present at 159 beats per minute. There is no evidence for free fluid. The right ovary has a normal echotexture and measures 2.7 x 1.9 x 1.9 cm. There is flow identified within the right ovary. There is a right ovarian cyst measuring approximately 1.7 x 1.5 cm. The left ovary was not visualized. No adnexal masses are noted. IMPRESSION: 1. Single viable intrauterine gestation of approximately 12 weeks 2 days. The estimated date of de livery is July 10, 2017. 2. Right ovarian cyst. 3. The left ovary was not visualized. .Jaime Richmond MD, Date Time Electronically viewed and signed by .Jaime Richmond MD, on 12/28/2016 05:42 .M/
[2016-12-28] MEDS ORDERED: ONDA4TAB8 PO (06:31)
[2016-12-28] MEDS ORDERED: ACET500C5 PO (06:31)
[2016-12-28] MEDS ORDERED: BEN25 PO (06:32)
== END 2016-12-28 07:04 | disposition home or self-care (01) ==
LOC: FTE 02:25
DX: O99.341 Other mental disorders complicating pregnancy, first trimester (principal); F41.9 Anxiety disorder, unspecified; R10.9 Unspecified abdominal pain; Z3A.12 12 weeks gestation of pregnancy
CPT/HCPCS: 36415; 76801; 80053; 80307; 81003; 82150; 83690; 84702; 84703; 85025; 86900; 86901; 87086; Z7502; Z7610

== ENCOUNTER 2017-02-03 19:56 | Emergency (ER) | payer MEDICAID ==
[~2017-02-03] VITALS: Ht 154.9 cm; Wt 52.0 kg
[~2017-02-03 19:56] MED LIST changes: +BEN25 PO; +ONDA4TAB8 PO
[2017-02-03 20:01] VITALS: Ht 154.9 cm; Wt 52.0 kg
--- NOTE | 2017-02-03 22:14 | ERD ---
ER Documentation Chief Complaint Date/Time DATE: 02/03/17 TIME: 22:02 Chief Complaint Pt with vomiting X 2 days, congestion, sinus pain x 3 days. 16 weeks pregna HPI 21 year old female presents here in the ER for complaints of nasal congestion, bilateral facial pain and sinus congestion for the last 3 days. Patient's complaining of bilateral "sinus" pain, facial pain, throbbing pain, 6/10 scale, now better or worse with anything. Patient's symptoms of vomiting. Patient does not have any blood in the vomit. Patient does not have any flank pain, abdominal pain. Patient is 16 weeks . Patient denies any vaginal bleeding or vaginal discharge. Patient denies hematuria or dysuria. ROS All systems reviewed and are negative except as per history of present illness. Medications Home Meds Active Scripts Diphenhydramine Hcl* (Benadryl*) 25 Mg Cap, 25 MG PO Q6 Y for ITCHING/RASH, #30 TAB Prov:JAYCEE HOLLEY F 12/28/16 Acetaminophen* (Tylophen*) 500 Mg Capsule, 1 CAP PO Q6H Y for PAIN AND OR ELEVATED TEMP, #20 CAP Prov:JAYCEE HOLLEY F 12/28/16 Ondansetron Hcl* (Zofran*) 4 Mg Tablet, 4 MG PO Q8H Y for NAUSEA AND/OR VOMITING , #30 TAB Prov:JAYCEE HOLLEY F 12/28/16 Acetaminophen* (Tylophen*) 500 Mg Capsule, 1 CAP PO Q6H Y for PAIN AND OR ELEVATED TEMP, #20 CAP Prov:HOLLI VELAZQUEZ PA-C 12/16/16 Ondansetron (Ondansetron Odt) 4 Mg Tab.rapdis, 4 MG PO Q8 Y for NAUSEA AND/OR VOMITING, #30 TAB Prov:JARED WEBBER NP 11/19/16 Cephalexin* (Keflex*) 500 Mg Capsule, 500 MG PO QID for 7 Days, CAP Prov:JARED WEBBER NP 11/19/16 Acetaminophen* (Tylophen*) 500 Mg Capsule, 1 CAP PO Q6H Y for PAIN AND OR ELEVATED TEMP, #20 CAP Prov:JARED WEBBER NP 11/19/16 Reported Medications [none] Unknown Strength No Conflict Check 11/19/16 Allergies Allergies: Uncoded Allergies: AMOXCILLIN (Allergy, Intermediate, 11/19/16) PMhx/Soc History of Surgery: Yes (C SECTION 2013) Anesthesia Reaction: No Hx Neurological Disorder: No Hx Respiratory Disorders: No Hx Cardiac Disorders: No Hx Psychiatric Problems: No Hx Miscellaneous Medical Probl: No Hx Alcohol Use: No Hx Substance Use: No Hx Tobacco Use: No FmHx Family History: No coronary disease, No diabetes, No other Physical Exam Vitals Vital Signs Date Time Temp Pulse Resp B/P Pulse Ox O2 Delivery O2 Flow Rate FiO2 02/03/17 20:01 98.5 92 18 109/72 100 Physical Exam GENERAL: The patient is well developed and appropriate for usual state of health, in no apparent distress. HEENT: Atraumatic. Ears: Normal tympanic membrane, no erythema or bulging. No ear canal swelling. No ear discharge. Nose: Erythematous nasal turbinates with clear nasal discharge. Tenderness on palpation bilateral maxillary sinuses. Throat: oropharynx clear. No tonsillar swelling or tonsillar exudates. No lymphadenopathy. CHEST: Clear to auscultation bilaterally. There are no rales, wheezes or rhonchi. HEART: Regular rate and rhythm. No murmurs, clicks, rubs or gallops. No S3 or S4. ABDOMEN: Soft, nontender and nondistended. Good bowel sounds. No rebound or guarding. No gross peritonitis. No gross organomegaly or masses. No Emanuel sign or McBurney point tenderness. BACK: No midline or flank tenderness. EXTREMITIES: Equal pulses bilaterally. There is no peripheral clubbing, cyanosis or edema. No focal swelling or erythema. Full range of motion. Grossly neurovascularly intact. NEURO: Alert and oriented. Cranial nerves 2-12 intact. Motor strength in all 4 extremities with 5/5 strength. Sensation grossly intact. Normal speech and gait. SKIN: There is no apparent rash or petechia. The skin is warm and dry. HEMATOLOGIC AND LYMPHATIC: There is no evidence of excessive bruising or lymphedema. No gross cervical, axillary, or inguinal lymphadenopathy. Results 24 hrs Laboratory Tests Test 02/03/17 22:43 Bedside Urine pH (LAB) 6.0 Bedside Urine Protein (LAB) Negative Bedside Urine Glucose (UA) Negative Bedside Urine Ketones (LAB) Negative Bedside Urine Blood Negative Bedside Urine Nitrite (LAB) Positive Bedside Urine Leukocyte Esterase (L Negative Procedures/MDM Medical decision making: Patient symptoms is likely consistent with acute bacterial sinusitis, patient will be treated for this, no symptoms of any sepsis at this time. Patient is not febrile. Patient appears well and is hemodynamically stable. Patient's vomiting episodes most likely Can Be from the Infection. Not Complaining of Any Abdominal Pain, Patient Doesn't Have Any Flank Pain, Vaginal Bleeding. No Suspicion for Threatened . Any Radiology Exams Are Not Indicated at This Time. Patient Is Allergic to Amoxicillin, Will Treat Acute Rhinosinusitis with azithromycin. Patient is advised to follow-up with primary care doctor in 2-3 days for reevaluation of symptoms. Patient is advised to return to emergency department for worsening symptoms. Patient also has urinary tract infection has positive fractures in the urine, which should with Macrobid. No symptoms of pyelonephritis. Departure Diagnosis: Primary Impression: Acute bacterial sinusitis Additional Impressions: Vomiting Vomiting type: unspecified Vomiting Intractability: unspecified Nausea presence: unspecified Qualified Code: R11.10 - Vomiting, intractability of vomiting not specified, presence of nausea not specified, unspecified vomiting type UTI (urinary tract infection) Urinary tract infection type: acute cystitis Hematuria presence: without hematuria Qualified Code: N30.00 - Acute cystitis without hematuria Condition: Stable Patient Instructions: Acute Sinusitis, Understanding Urinary Tract Infections ( UTIs), Vomiting (6Y-Adult) JARED WEBBER NP February 03, 2017 22:13
[2017-02-03 22:42] LABS: URINE BLOOD (Dip) POC Negative (NEGATIVE)
[2017-02-03] MEDS ORDERED: NITR-58 PO (22:50)
[2017-02-03] MEDS ORDERED: AZIT250T94 PO (22:50)
[2017-02-03] MEDS ORDERED: CETI10CA PO (22:50)
[2017-02-03] MEDS ORDERED: ACET500C5 PO (22:50)
== END 2017-02-03 23:00 | disposition home or self-care (01) ==
LOC: FTE 19:56
DX: O99.512 Diseases of the respiratory system complicating pregnancy, second trimester (principal); J01.90 Acute sinusitis, unspecified; O23.12 Infections of bladder in pregnancy, second trimester; Z3A.16 16 weeks gestation of pregnancy
CPT/HCPCS: 81003; Z7502; 99283